=== PATIENT | female | born 1985 | race Caucasian/White ===

== ENCOUNTER 2018-11-03 18:52 | Emergency (ER) | payer BC, MEDICAID ==
[~2018-11-03] VITALS: Ht 167.6 cm; Wt 58.1 kg
[2018-11-03 19:50] VITALS: BP 134/73
[2018-11-03] MEDS ORDERED: IBUPROFEN 600 MG TABLET PO ONE ×2 (20:30→20:33)
--- NOTE | 2018-11-03 20:39 | NUR ---
Patient discharged to home in stable condition. Written and verbal after care instructions given. Patient verbalizes understanding of instruction.
== END 2018-11-03 20:40 | disposition home or self-care (01) ==
LOC: ER 19:01
DX: S16.1XXA Strain of muscle, fascia and tendon at neck level, initial encounter (principal); S29.012A Strain of muscle and tendon of back wall of thorax, initial encounter; V49.49XA Driver injured in collision with other motor vehicles in traffic accident, initial encounter; Y93.89 Activity, other specified; Y92.488 Other paved roadways as the place of occurrence of the external cause; Y99.8 Other external cause status
CPT/HCPCS: 99282; A4606

== ENCOUNTER 2025-04-16 18:05 | Emergency (ER) | payer BC, MEDICAID ==
[~2025-04-16] VITALS: Ht 167.6 cm; Wt 62.7 kg
[2025-04-16 18:35] VITALS: BP 109/73; TEMP 97.6; O2SAT 98
[2025-04-16] MEDS ORDERED: DIPH25CA83 PO (19:05)
[2025-04-16] MEDS ORDERED: HYDR453.4 TP (19:05)
== END 2025-04-16 19:09 | disposition home or self-care (01) ==
LOC: ER 18:22
DX: L30.8 Other specified dermatitis (principal); L29.9 Pruritus, unspecified